=== PATIENT | female | born 1980 | race Caucasian/White ===

== ENCOUNTER 2017-01-27 18:27 | Emergency (ER) | payer MEDICAID ==
[~2017-01-27] VITALS: Ht 170.2 cm; Wt 73.0 kg
[2017-01-27 18:34] VITALS: Ht 170.2 cm; Wt 73.0 kg
--- NOTE | 2017-01-27 19:46 | ERD ---
ER Documentation Chief Complaint Chief Complaint broke upper molar teeth yesterday, [place]&jaw pain now HPI 36-year-old female who presents emergency department for toothache, swallowed dental crown. Stated this happened while she was eating last night, accidentally bit a hard food, cracked her right upper first premolar in to half then her left lower first premolar's dental crown. And he might have accidentally swallowed these. No known drug allergies. No past medical history except multiple fracture with surgeries when she was in her teens. Has multiple dental implants. Medication : Denies. Social: Works as an accountant budget. Denies smoking, use of alcoholic beverages, use of illegal drugs. LMP: stated that she is on it at this time. ROS All systems reviewed and are negative except as per history of present illness. Medications Home Meds Active Scripts Ibuprofen* (Motrin*) 800 Mg Tab, 800 MG PO Q8 Y for PAIN AND OR ELEVATED TEMP, # 30 TAB Prov:ALANAILACJMART 01/27/17 Hydrocodone/Acetaminophen ([place] 10-325 Tablet) 1 Each Tablet, 1 TAB PO Q6H Y for PAIN, #20 TAB Prov:ALANAILABANMART F 01/27/17 Amoxicillin* (Amoxicillin*) 500 Mg Cap, 500 MG PO TID for 7 Days, CAP Prov:CEDRICBANMART F 01/27/17 Allergies Allergies: Coded Allergies: No Known Allergy (Unverified , 01/27/17) PMhx/Soc Medical and Surgical Hx: pt denies Medical Hx, pt denies Surgical Hx Hx Alcohol Use: No Hx Substance Use: No Hx Tobacco Use: No Smoking Status: Never smoker Physical Exam Vitals Vital Signs Date Time Temp Pulse Resp B/P Pulse Ox O2 Delivery O2 Flow Rate FiO2 01/27/17 18:34 98.1 79 20 129/61 98 Physical Exam Const: Well-appearing. Not in respiratory distress. Head: Atraumatic Eyes: Normal Conjunctiva ENT: Normal External Ears, Nose and Mouth. Right upper first molar partial tooth with tenderness to palpation and gums. Left lower. First premolar. Dental crown is out. Root was seen. Neck: Full range of motion..~ No meningismus. Resp: Clear to auscultation bilaterally Cardio: Regular rate and rhythm, no murmurs Abd: Soft, non tender, non distended. Normal bowel sounds Skin: No petechiae or rashes Back: No midline or flank tenderness Ext: No cyanosis, or edema Neur: Awake and alert Psych: Normal Mood and Affect Procedures/MDM Case was discussed with supervising emergency room physician, Dr. Vernon De La Rosa who suggested for me to do a chest x-ray. He also stated that if chest x-ray is unremarkable or acceptable, to discharge the patient with antibiotics and pain medicine and have her follow-up with her dentist. X-ray: No evidence of acute cardiopulmonary disease. no radiopaque foreign body. Prescription: Amoxicillin. [place]. Follow-up with PCP in the next 24-48 hours. Follow-up with the dentist in the next 24-48 hours. All questions and concerns were answered. Patient verbalized understanding and agreed with the plan of care. Hemodynamically stable on discharge. Departure Diagnosis: Primary Impression: Tooth avulsion Additional Impression: Tooth abscess Condition: Stable Additional Instructions: Follow-up with PCP in the next 24-48 hours. Follow-up with the dentist in the next 24-48 hours. All questions and concerns were answered. Patient verbalized understanding and agreed with the plan of care. MART SAMPSON Jan 27, 2017 19:46
--- NOTE | 2017-01-27 20:21 | RADRPT ---
PROCEDURE: PA and lateral chest x-ray. CLINICAL INDICATION: Ingested foreign body. TECHNIQUE: PA and lateral views of the chest. COMPARISON: None. FINDINGS: No pulmonary edema or conolidation is identified. The cardiac silhouette is not enlarged. No pleur al effusion is seen. There is no pneumothorax. There is no radiopaque foreign body. IMPRESSION: 1. No evidence of acute cardiopulmonary disease. 2. No radiopaque foreign body. RPTAT: HTAR .John Villanueva MD, Date Time Electronically viewed and signed by .John Villanueva MD, on 01/27/2017 20:20 .R/
[2017-01-27] MEDS ORDERED: AMOX500C2 PO (20:42)
[2017-01-27] MEDS ORDERED: HYDR-902 PO (20:45)
[2017-01-27] MEDS ORDERED: IBUP800T25 PO (20:46)
== END 2017-01-27 21:00 | disposition home or self-care (01) ==
LOC: FTE 18:27
DX: K04.7 Periapical abscess without sinus (principal); S03.2XXA Dislocation of tooth, initial encounter; R07.9 Chest pain, unspecified; X58.XXXA Exposure to other specified factors, initial encounter; Y92.9 Unspecified place or not applicable
CPT/HCPCS: 71020; Z7502

== ENCOUNTER 2017-03-05 16:54 | Emergency (ER) | END 2017-03-05 19:17 | disposition home or self-care (01) ==

== ENCOUNTER 2017-03-06 10:57 | Emergency (ER) | END 2017-03-06 11:35 | disposition home or self-care (01) ==

== ENCOUNTER 2017-03-15 08:28 | Emergency (ER) | END 2017-03-15 09:18 | disposition home or self-care (01) ==

== ENCOUNTER 2017-03-18 16:46 | Emergency (ER) | END 2017-03-18 17:04 | disposition home or self-care (01) ==

== ENCOUNTER 2017-03-21 11:55 | Emergency (ER) | END 2017-03-21 16:46 | disposition left against medical advice (07) ==